=== PATIENT | female | born 1970 | race American Indian/Alaskan Native ===

== ENCOUNTER 2016-10-14 14:15 | Outpatient (CLI) | payer OTHER ==
--- NOTE | 2016-10-14 15:44 | Ultrasound Report ---
LEFT DIGITAL DIAGNOSTIC MAMMOGRAM pass and LEFT BREAST ULTRASOUND: 10/14/16 14:15:00 CLINICAL: Left breast pain and lump. COMPARISON:[facility] mammogram from 04/16/16 FINDINGS: The breast is heterogeneously dense, which may obscure small masses. Focal asymmetry in the upper-outer quadrant correlates with the area of tenderness and lump. No distinct mass is identified.No architectural distortion or suspicious calcifications. Ultrasound of the left breast (including all four quadrants and the retroareolar area) was performed. An oval benign cyst at 12:30 o'clock 2 cm from the nipple measures 2.2 x 2.3 x 1.4 cm and corresponds to the area of lump and tenderness. In addition, abnormal retroareolar ducts are identified at 12:30 -1 o'clock. There is duct ectasia and an intraductal mass measuring 1.9 x 0.5 cm. Blood flow is identified within the intraductal mass by color Doppler. There are other dilated ducts with no other intraductal mass identified. The patient denied any nipple discharge. IMPRESSION: 1. A tender 2.3 cm left breast cyst at 12:30 o'clock 2 cm from the nipple. Recommend ultrasound guided aspiration for symptomatic relief. 2. Duct ectasia and a 1.9 x 0.5 cm intraductal mass near the nipple at 12:30- 1 o'clock. Recommend ultrasound-guided vacuum assisted needle biopsy. BI-RADS CATEGORY: 4--Suspicious I discussed the findings and the recommendation for ultrasound needle aspiration and needle core biopsy with the patient at the time of the examination. ACR BI-RADS MAMMOGRAPHIC CODES: 0 = Needs additional imaging evaluation; 1 = Negative; 2 = Benign; 3 = Probably benign; 4 = Suspicious; 5 = Malignant; 6 = Known biopsy-proven malignancy COMMENT: 1. Dense breast tissue, i.e., adenosis, fibrocystic changes, etc., may obscure an underlying neoplasm. 2. Approximately 10% of cancers are not detected with mammography. 3. A negative mammography report should not delay biopsy if a clinically suspicious mass is present. COMMENT: Patient follow-up letters are generated by our [email or web address] application.
== END 2016-10-14 14:16 | disposition home or self-care (01) ==
LOC: SPVWC 14:15
PROVIDERS: ATTEND Family Medicine
DX: N60.02 Solitary cyst of left breast (principal); N60.42 Mammary duct ectasia of left breast; N63 Unspecified lump in breast
CPT/HCPCS: 76641; G0206

== ENCOUNTER 2016-10-28 08:49 | Outpatient (CLI) | payer OTHER ==
--- NOTE | 2016-10-28 13:48 | Mammography Report ---
LEFT DIGITAL DIAGNOSTIC MAMMOGRAM: 10/28/16 08:49:00 CLINICAL: For clip placement immediately status post ultrasound biopsy. COMPARISON:10/14/16 FINDINGS: A retroareolar biopsy clip is now identified and correlates with the lesion identified only by ultrasound. IMPRESSION: Concordant clip placement status post ultrasound biopsy. BI-RADS CATEGORY: 4--Suspicious Pathology pending.
--- NOTE | 2016-10-28 16:16 | Ultrasound Report ---
VACUUM ASSISTED ULTRASOUND GUIDED NEEDLE CORE BIOPSY WITH CLIP PLACEMENT LEFT BREAST AND ULTRASOUND GUIDED CYST ASPIRATION LEFT BREAST: 10/28/16 08:49:00 CLINICAL: Intraductal mass at 12:30 to 1 o'clock subareolar and asymptomatic left breast cyst at 12:30 o'clock. COMPARISON :10/14/16 FINDINGS: The procedure was explained to the patient and informed consent was obtained. Ultrasound demonstrated the previously described intraductal mass and the previously described cyst. The skin was prepped with Betadine and anesthetized with 1% lidocaine. Vacuum-assisted needle core biopsy was performed through a small dermatotomy using ultrasound guidance, 2% lidocaine with epinephrine for deep anesthesia and a 13-gauge Elite biopsy probe. Multiple cores were obtained and placed in formalin. A hydro-madison clip was deployed within the lesion. The skin was prepped with Betadine and anesthetized with 1% lidocaine. Using outside guidance, an 18-gauge needle was introduced into the cyst at 12:30 o'clock. The cyst was aspirated in collapse completely. A few cc of brownish fluid was removed. No specimen was sent to the lab. Hemostasis was achieved with minimal pressure and sterile dressings were applied The patient tolerated the procedure well and there were no apparent complications. A two view mammogram demonstrated concordant clip placement. The patient left the department in good condition and was given instructions for wound care and follow up. IMPRESSION: Uncomplicated vacuum-assisted ultrasound core biopsy and clip placement left breast and uncomplicated ultrasound guided cyst aspiration left breast.
== END 2016-10-28 08:50 | disposition home or self-care (01) ==
LOC: SPVWC 08:49
PROVIDERS: ATTEND Family Medicine
DX: N63 Unspecified lump in breast (principal); N60.02 Solitary cyst of left breast; Z98.890 Other specified postprocedural states
CPT/HCPCS: 19000; 19083; 88305; G0206